=== PATIENT | female | born 2000 | race Caucasian/White ===

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

== ENCOUNTER → 2022-01-27 | Outpatient (CLI) | payer BC ==
[2022-01-27 09:49] LABS: BASO % 0.4 % (0.0-1.0); EOS # 0.1 10*3/uL (0.0-0.4); EOS % 0.8 % (1.0-4.0); HEMATOCRIT 37.1 % (37.0-47.0); LYMPH # 2.3 10*3/uL (1.3-4.4); LYMPH % 23.9 % (27.0-41.0); MEAN CELL VOLUME 95.1 fl (81.0-99.0); MEAN CORPUSCULAR HGB 32.6 pg (27.0-31.0); MEAN CORPUSCULAR HGB CONC 34.2 g/dl (33.0-37.0); MEAN PLATELET VOLUME 9.8 fl (9.6-12.3); MONO # 0.5 10*3/uL (0.1-1.0); MONO % 5.1 % (3.0-9.0); NEUT # 6.7 10*3/uL (2.3-7.9); NEUT % 69.5 % (47.0-73.0); PLATELET COUNT AUTOMATED 254 10*3/uL (130-400); RED CELL DISTRI WIDTH 12.7 % (0-14.5); WHITE BLOOD COUNT 9.7 10*3/uL (4.8-10.8)
[2022-01-27 10:10] LABS: BUN 6 mg/dl (7-24); CHLORIDE 107 mmol/L (98-107); CREATININE 0.64 mg/dL (0.55-1.02); POTASSIUM 3.6 mmol/L (3.5-5.1); SGOT/AST 11 IU/L (3-35); SGPT/ALT 15 U/L (12-78); SODIUM 137 mmol/L (136-145); TOTAL PROTEIN 7.4 gm/dL (6.4-8.2)
[2022-01-27 10:12] LABS: ALKALINE PHOSPHATASE 49 U/L (45-117)
== END | disposition home or self-care (01) ==
LOC: LAB 09:23
PROVIDERS: ATTEND Pediatrics
DX: E55.9 Vitamin D deficiency, unspecified (principal); D64.9 Anemia, unspecified

== ENCOUNTER 2022-05-18 22:49 | Emergency (ER) | payer BC ==
[~2022-05-18] VITALS: Ht 154.9 cm; Wt 72.6 kg
[2022-05-19] MEDS ORDERED: CEPHALEXIN500 M1 PO (02:24)
== END 2022-05-19 02:39 | disposition home or self-care (01) ==
LOC: ED 22:49
DX: O26.892 Other specified pregnancy related conditions, second trimester (principal); L03.011 Cellulitis of right finger; Z3A.23 23 weeks gestation of pregnancy; M79.89 Other specified soft tissue disorders

== ENCOUNTER 2022-08-28 13:05 | Emergency (ER) | payer BC ==
[~2022-08-28] VITALS: Ht 154.9 cm; Wt 61.2 kg
[~2022-08-28 13:05] MED LIST changes: +CEPHALEXIN500 M1 PO
[2022-08-28 13:27] LABS: BASO # 0.1 10*3/uL (0.0-0.1); BASO % 0.5 % (0.0-1.0); EOS % 0.2 % (1.0-4.0); HEMATOCRIT 39.2 % (37.0-47.0); LYMPH # 2.2 10*3/uL (1.3-4.4); LYMPH % 19.3 % (27.0-41.0); MEAN CELL VOLUME 97.8 fl (81.0-99.0); MEAN CORPUSCULAR HGB 33.4 pg (27.0-31.0); MEAN CORPUSCULAR HGB CONC 34.2 g/dl (33.0-37.0); MEAN PLATELET VOLUME 9.7 fl (9.6-12.3); MONO # 0.6 10*3/uL (0.1-1.0); MONO % 5.4 % (3.0-9.0); NEUT # 8.6 10*3/uL (2.3-7.9); NEUT % 74.4 % (47.0-73.0); PLATELET COUNT AUTOMATED 278 10*3/uL (130-400); RED BLOOD COUNT 4.01 10*6/uL (4.10-5.10); RED CELL DISTRI WIDTH 12.1 % (0-14.5); WHITE BLOOD COUNT 11.6 10*3/uL (4.8-10.8)
[2022-08-28 13:43] LABS: ALKALINE PHOSPHATASE 96 U/L (46-116); BUN 10 mg/dl (9-23); CHLORIDE 104 mmol/L (98-107); POTASSIUM 3.2 mmol/L (3.4-5.1); SGPT/ALT 28 U/L (10-49); TOTAL PROTEIN 7.7 gm/dL (6.0-8.0)
[2022-08-28 13:44] LABS: ETHYL ALCOHOL < 3.0 mg/dl (<3)
[2022-08-28 17:14] LABS: BILIRUBIN Negative (Negative); BLOOD 2+ (Negative); CLARITY Cloudy (Clear); COLOR Dark Yellow (Yellow); GLUCOSE Negative (Negative); KETONE 4+ (Negative); LEUKO ESTERASE 2+ (Negative); NITRITE Negative (Negative); PH 5.5 (4.5-8.0); SPECIFIC GRAVITY >= 1.030 (1.001-1.030)
[2022-08-28 17:21] LABS: URINE AMPHETAMINES Negative (1000ng/ml); URINE BARBITURATES Negative (200ng/ml); URINE BENZODIAZEPINES Negative (200ng/ml); URINE CANNABINOIDS (THC) Negative (50ng/ml); URINE COCAINE Negative (300ng/ml); URINE METHADONE Negative (300ng/ml); URINE OPIATES Negative (300ng/ml); URINE PHENCYCLIDINE Negative (25ng/ml)
[2022-08-28 18:01] LABS: BACTERIA 1+; RBC 21-30 rbc/hpf (0-2); WBC 21-30 wbc/hpf (0-5)
[2022-08-28 18:02] LABS: CPK 512 U/L (34-171)
== END 2022-08-29 07:49 ==
LOC: ED 13:05
PROVIDERS: Emergency Medicine
DX: F29 Unspecified psychosis not due to a substance or known physiological condition (principal); F31.9 Bipolar disorder, unspecified; Z79.899 Other long term (current) drug therapy; Z20.822 Contact with and (suspected) exposure to COVID-19

== ENCOUNTER → 2023-02-14 | Outpatient (CLI) | payer BC, OTHER | END | disposition home or self-care (01) | LOC: LAB 11:24 | PROVIDERS: ATTEND Nurse Practitioner Women's Health | DX: J02.9 Acute pharyngitis, unspecified (principal); R21 Rash and other nonspecific skin eruption; Z20.822 Contact with and (suspected) exposure to COVID-19 ==

== ENCOUNTER 2024-03-07 18:18 | Emergency (ER) | payer BC, OTHER ==
[~2024-03-07] VITALS: Wt 83.9 kg
[2024-03-07] MEDS ORDERED: Ketorolac Tromethamine 60 MG/2 ML VIAL IM ONE (20:40)
[2024-03-07] MEDS ORDERED: NAPROXEN250 MG PO (20:42)
== END 2024-03-07 20:59 | disposition home or self-care (01) ==
LOC: ED 18:18
DX: S80.02XA Contusion of left knee, initial encounter (principal); W21.00XA Struck by hit or thrown ball, unspecified type, initial encounter; Y93.89 Activity, other specified; Y92.009 Unspecified place in unspecified non-institutional (private) residence as the place of occurrence of the external cause; Y99.8 Other external cause status

== ENCOUNTER 2024-07-21 09:47 | Emergency (ER) | payer BC, OTHER ==
[~2024-07-21] VITALS: Ht 154.9 cm; Wt 81.6 kg
[~2024-07-21 09:47] MED LIST changes: +NAPROXEN250 MG PO
[2024-07-21 10:28] LABS: BASO % 0.6 % (0.0-1.0); EOS # 0.1 10*3/uL (0.0-0.4); EOS % 1.5 % (1.0-4.0); HEMATOCRIT 39.3 % (37.0-47.0); MEAN CELL VOLUME 94.5 fl (81.0-99.0); MEAN CORPUSCULAR HGB 31.3 pg (27.0-31.0); MEAN CORPUSCULAR HGB CONC 33.1 g/dl (33.0-37.0); MEAN PLATELET VOLUME 9.4 fl (9.6-12.3); MONO # 0.5 10*3/uL (0.1-1.0); MONO % 6.9 % (3.0-9.0); NEUT # 4.2 10*3/uL (2.3-7.9); NEUT % 62.8 % (47.0-73.0); PLATELET COUNT AUTOMATED 260 10*3/uL (130-400); RED BLOOD COUNT 4.16 10*6/uL (4.10-5.10); RED CELL DISTRI WIDTH 12.2 % (0-14.5); WHITE BLOOD COUNT 6.6 10*3/uL (4.8-10.8)
[2024-07-21 10:38] LABS: ACT PARTIAL THROMBO TIME 25.1 SECONDS (20.0-32.1)
[2024-07-21 10:49] LABS: BILIRUBIN Negative (Negative); BLOOD 3+ (Negative); CLARITY Cloudy (Clear); COLOR Red (Yellow); GLUCOSE Negative (Negative); KETONE Negative (Negative); LEUKO ESTERASE 1+ (Negative); NITRITE Negative (Negative); PH 5.5 (4.5-8.0); SPECIFIC GRAVITY >= 1.030 (1.001-1.030); UROBILINOGEN 0.2 E.U./dl (0.0-1.0)
[2024-07-21 10:51] LABS: ALKALINE PHOSPHATASE 70 U/L (46-116); BUN 8 mg/dl (9-23); CHLORIDE 105 mmol/L (98-107); POTASSIUM 3.5 mmol/L (3.4-5.1); SGPT/ALT 13 U/L (5-49); TOTAL PROTEIN 7.2 gm/dL (6.0-8.0)
[2024-07-21 10:53] LABS: BETA-HCG, QUANT < 3.0 mIU/mL (3-10)
[2024-07-21 11:14] LABS: BACTERIA 3+; EPITHELIAL CELLS 21-30; RBC TNTC rbc/hpf (0-2)
== END 2024-07-21 13:41 | disposition home or self-care (01) ==
LOC: ED 09:47
PROVIDERS: Internal Medicine
DX: N92.0 Excessive and frequent menstruation with regular cycle (principal); Z79.899 Other long term (current) drug therapy

== ENCOUNTER 2024-09-24 03:25 | Emergency (ER) | payer BC, OTHER ==
[~2024-09-24] VITALS: Ht 154.9 cm; Wt 72.6 kg
[2024-09-24] MEDS ORDERED: LORazepam 1 MG TAB PO ONE (03:45)
== END 2024-09-24 05:55 | disposition home or self-care (01) ==
LOC: ED 03:25
DX: F41.9 Anxiety disorder, unspecified (principal); Z79.899 Other long term (current) drug therapy